=== PATIENT | male | born 1960 | race Caucasian/White ===

== ENCOUNTER 2020-04-01 06:57 | Outpatient (NON) | payer OTHER, SELFPAY ==
[2020-04-02 01:42] LABS: SARS-CoV-2 RNA PCR Negative
== END 2020-04-01 06:58 ==
PROVIDERS: PCP Family Medicine; Visit Provider Physician Assistant
DX: R05 Cough (principal); Z20.828 Contact with and (suspected) exposure to other viral communicable diseases
CPT/HCPCS: 87635; C9803; U0003

== ENCOUNTER → 2020-06-06 02:19 | Outpatient (CLI) | payer OTHER, SELFPAY ==
[2020-06-06 21:58] LABS: SARS-CoV-2 RNA PCR Negative
== END ==
PROVIDERS: PCP Family Medicine; Visit Provider Specialist
DX: Z01.812 Encounter for preprocedural laboratory examination (principal); Z20.822 Contact with and (suspected) exposure to COVID-19
CPT/HCPCS: C9803; U0003; U0005

== ENCOUNTER 2020-06-09 00:47 | Day surgery (SDC) | payer OTHER, SELFPAY ==
[2020-06-06 11:58] VITALS: BMI 29.6
[2020-06-09] VITALS (24 sets, daily range): BP systolic 128–175; BP diastolic 80–103; PULSE 45–55; RESP 11–23; TEMP 36.6; O2SAT 96–100; BMI 30.9
[2020-06-09 07:32] LABS: Basophils Percent Auto 0.6 % (0.2-1.2); Eosinophils Absolute Auto 0.1 K/mm3 (0-0.3); Eosinophils Percent Auto 2.7 % (0-4.4); Hemoglobin 15.1 g/dL (14.0-18.0); Immature Granulocyte Absolute 0.04 K/mm3 (0.00-0.031); Immature Granulocyte Percent A 0.8 % (0-0.5); Immature Platelet Fraction Pct 4.5 % (0.9-11.2); Lymphocytes Absolute Auto 1.16 K/mm3 (0.9-3.2); Lymphocytes Percent Auto 23.9 % (18.3-44.2); Mean Corpuscular HGB Conc 34.3 g/dl (32-36); Mean Corpuscular Hemoglobin 30.1 pg (26-34); Mean Corpuscular Volume 87.6 fl (80-100); Mean Platelet Volume 10.7 fl (7.4-10.4); Monocytes Absolute Auto 0.5 K/mm3 (0.1-0.6); Monocytes Percent Auto 9.5 % (2.6-8.5); Neutrophils Percent Auto 62.5 % (45.5-73.1); Platelet Count Result 130 k/mm3 (150-375); Red Blood Count 5.02 M/mm3 (4.6-6.20); Red Cell Distribution Width 12.5 % (11.5-14.5); White Blood Count 4.9 K/mm3 (4.5-10.0)
[2020-06-09 07:46] LABS: Anion Gap 2 mmol/L (8-16); Blood Urea Nitrogen 19 mg/dL (9-20); Calcium 8.7 mg/dL (8.4-10.2); Carbon Dioxide 30 mmol/L (22-30); Chloride 107 mmol/L (98-107); Estimated CRCL calculation 102 ml/min; Estimated Glomerular Filt Rate > 60; Glucose 116 mg/dL (75-110); Sodium 139 mmol/L (137-145)
--- NOTE | 2020-06-09 08:39 | WPDMODSED ---
Moderate Sedation Note-Pt Data Patient Data Diagnosis: Abnormal ECG /abnormal echo? Rule out CAD Present Complaint: no complaints Procedure to be performed/Plan: left heart catheterization Allergies Allergy/AdvReac Type Severity Reaction Status Date / Time No Known Allergies Allergy Verified 04/09/20 09:30 Home Medications Medication Instructions Recorded Confirmed Type nebivolol 10 mg tablet 10 mg PO DAILY #90 tablet 11/29/19 06/06/20 Rx aspirin 81 mg chewable tablet 81 mg PO DAILY #90 tablet 04/09/20 06/06/20 Rx omeprazole 40 mg capsule,delayed 40 mg PO DAILY #30 cap 04/09/20 06/06/20 Rx release Current Medications: Active Medications Sodium Chloride (Normal Saline Iv) 500 mls @ 100 mls/hr IV CONT .Q5H [facility] Sedation/Anesthesia: No previous sedation/anesthesia problems (including family history). [facility] Social History Social History Smoking status: Never smoker Alcohol intake: never Substance use: never Substance use type: does not use Living arrangements: with family Spiritual care concerns: No Mod Sed Physical Exam Physical Exam Pre Procedural Exam: Normal: Appearance, Neck, Throat, Airway, Lungs, Heart Size, Heart Rate, Heart Rhythm, Neuro Exam and Extremities Hours since solid foods: 12 Hours since liquid intake: 12 Internal Medicine - PN: Obj Da Vital Signs Vital Signs: Vital Signs - 24 hr 06/09/20 07:34 Temperature 36.6 C Pulse Rate 53 L Respiratory Rate 15 Blood Pressure 160/95 H Pulse Oximetry 98 Meds/Results Medications: Active Medications Generic Name Dose Route Start Last Admin Trade Name Freq PRN Reason Stop Dose Admin Sodium Chloride 500 mls @ 100 mls/hr 06/09/20 07:00 Normal Saline Iv IV CONT .Q5H [facility] Labs CBC & Chem 7: 06/09/20 07:20 06/09/20 07:20 Labs: Laboratory Results - last 24 hr 06/09/20 06/09/20 07:20 07:20 WBC 4.9 RBC 5.02 Hgb 15.1 Hct 44.0 MCV 87.6 MCH 30.1 MCHC 34.3 RDW 12.5 Plt Count 130 L MPV 10.7 H Immature Gran % (Auto) 0.8 H Neut % (Auto) 62.5 Lymph % (Auto) 23.9 [place] % (Auto) 9.5 H Eos % (Auto) 2.7 Baso % (Auto) 0.6 Lymph # (Auto) 1.16 [place] # (Auto) 0.5 Eos # (Auto) 0.1 Baso # (Auto) 0.0 Abs Immat Gran (auto) 0.04 H Absolute Neuts (auto) 3.0 Absolute Nucleated RBC 0.0 Nucleated RBC % 0.0 % Immature Plt Fraction 4.5 Sodium 139 Potassium 5.0 Chloride 107 Carbon Dioxide 30 Anion Gap 2 L BUN 19 Creatinine 0.90 Estim Creat Clear Calc 102 Estimated GFR > 60 Glucose 116 H Calcium 8.7 ASA Classification/Sedation ASA Classification/Sedation ASA Class: II Emergent: No Risks: Risks, benefits and alternatives explained and patient/family accepted plan for sedation. Patient re-evaluated immediately prior to sedation.
--- NOTE | 2020-06-09 09:32 | ECG_ITS ---
Measurements Intervals [place] Rate: 50 P: 51 IA: 169 QRS: -24 QRSD: 102 T: 23 QT: 407 QTc: 374 Interpretive Statements SINUS BRADYCARDIA DELAYED PRECORDIAL R/S TRANSITION BORDERLINE T WAVE ABNORMALITY- ANTERIOR LEADS BASELINE ARTIFACT- I, II BORDERLINE ECG Electronically Signed On 06-09-2020 10:25:35 LEATHER STRIPPING MACHINE OPERATOR by Dave Kim D.O.
--- NOTE | 2020-06-09 09:35 | WPDCARDPROC ---
Cardiac Cath Procedure Note Date of procedure:: 06/09/20 Performing physician:: Bo Patterson MD Indication:: abnormal stress test /echocardiogram Brief clinical history:: this is a 59-year-old man who had an episode of self-limited sharp atypical sounding chest pain recently as an outpatient. This triggered an evaluation including a stress test and an echocardiogram. The stress test showed some pseudonormalization of his inverted T-waves and his echocardiogram demonstrated wall motion abnormalities compatible with a previous anteroapical infarction. For this reason angiogram has been recommended. Procedure Procedure performed:: left ventriculogram coronary angiogram PCI (BEN) to the mid LAD Sedation/Medication given:: fentanyl 50 mg Versed 2 mg case start time 8:52 a.m. case end time 9:30 a.m. sedation provided by Katina Romero RN, trained observer Access site:: [facility] right femoral artery Estimated blood loss:: 20-30 cc Procedure note:: patient was brought to the cardiac catheterization lab in the postabsorptive state the right femoral triangle was prepared and draped in the usual fashion. Anesthesia was provided with 1% lidocaine infiltrated locally. Using the modified Seldinger technique a 5 [place] sheath was placed into the right femoral artery. After this left heart catheterization was carried out. A 5 [place] angled pigtail catheter was used to measure left-sided hemodynamics and inject the left ventriculogram in the SIN projection. After this standard 5 [place] FL4 and JR4 catheters were used to engage inject the left and right coronaries in multiple projections. Following this the cine angiograms were reviewed and PCI of the LAD was recommended and carried out as detailed below. Prior to PCI the 5 [place] sheath was changed over guidewire for 6 [place] and he was then systemically anticoagulated with bolus and infusion of Angiomax. He received aspirin and 180 mg of Brilinta prior to PCI. Following intervention the sheath was sutured into position the patient was taken to the holding area for recovery and sheath removal. He was in stable condition there was no evidence of any groin hematoma upon leaving the labor relations representative. Findings:: Hemodynamics: Central aortic pressure 140/76 left ventricle 140/6 end-diastolic pressure 14. There is no gradient across the aortic valve upon pullback. Left ventricle: The LV is normal in size the mid to apical anterior segment is hypodynamic the remainder of the LV contracts adequately the global ejection fraction is in the low-normal range of 45-50%. The left main coronary artery is nicely patent the left anterior descending is a [id number] caliber vessel proximally giving rise to a proximal diagonal and septal branch which are free of significant disease. Following this the LAD is 99% occluded with very slow flow distal to this down to the apex. Circumflex is a moderate caliber artery giving rise to the marginal branches. The largest marginal branch has a modest 30-40% stenosis proximally. Right coronary artery is large in caliber and dominant to the posterior circulation the right coronary artery is angiographically free of disease. There is no collateral filling from the right to the occluded LAD. Intervention: The left main coronary artery was engaged using a 6 [place] CLS 3 5 guiding catheter. A 0.014 BMW wire was used to probe the occluded segment of the LAD was successfully advanced into the distal LAD. The lead area of occlusion was then pre-dilated using a 2.0 x 20 mm emerge PTCA balloon. There was 80% stenosis in the LAD about 20-25 cm distal to the initial occlusion. 200 mcg of intracoronary nitroglycerin was given without any angiographic change in this appearance. This area was then pre-dilated with the same 2 mm balloon as detailed above. Following this I used a 3 x 35 mm Bookya drug-eluting stent deployed immediately at the origin of the septal branch
[2020-06-09] MEDS: SODIUM CHLORIDE 0.9% IV 1,000 ML 125 ML IV CONT (10:48)
--- NOTE | 2020-06-09 14:00 | ADMGEN ---
This patient, Lawrence King, was admitted to [facility]. Patient/family oriented to hospital policies and general routines including ID bracelet, bed and alarms, visiting hours, pain management, procedures, bathroom and other care routines, personal items, smoking policy, room service/diet, and visiting hours. Information on how to activate the Rapid Response Team has been discussed. Patient/Family are encouraged to report perceived risks to care and to ask questions if they do not understand what they are told or what they should do.
[2020-06-09] MEDS: TICAGRELOR 90 MG TABLET PO (20:03)
[2020-06-10] VITALS: BP 136/90; PULSE 49; PULSE 54; PULSE 56; RESP 18; TEMP 36.6; O2SAT 97
[2020-06-10 02:00] VITALS: PULSE 49
[2020-06-10 04:00] VITALS: BP 139/91; PULSE 54; PULSE 61; PULSE 63; RESP 13; TEMP 36.5; O2SAT 99
--- NOTE | 2020-06-10 05:11 | ECG_ITS ---
Measurements Intervals [place] Rate: 56 P: 35 MA: 151 QRS: -34 QRSD: 101 T: 19 QT: 399 QTc: 386 Interpretive Statements SINUS BRADYCARDIA LEFT AXIS DEVIATION VOLTAGE CRITERIA FOR LVH POOR R WAVE PROGRESSION, CONSIDER ANTEROLATERAL INFARCT T WAVE ABNORMALITY IN ANTEROLATERAL LEADS- CONSIDER ISCHEMIA BASELINE ARTIFACT- I, II, AVR ABNORMAL ECG Electronically Signed On 06-10-2020 10:17:32 GUIDE CRUISE by Dave Kim D.O.
[2020-06-10 06:00] VITALS: PULSE 57
[2020-06-10 08:00] VITALS: BP 142/94; PULSE 58; PULSE 60; RESP 16; TEMP 36.6; O2SAT 98
[2020-06-10] MEDS: ROSUVASTATIN 10 MG TABLET PO (08:36)
[2020-06-10] MEDS: TICAGRELOR 90 MG TABLET PO (08:36)
[2020-06-10] MEDS: ASPIRIN 81 MG CHEWABLE TABLET PO (08:36)
[2020-06-10 10:00] VITALS: PULSE 68
--- NOTE | 2020-06-10 10:15 | PC.NURSE ---
DR. URIARTE HERE TO SEE PT.
--- NOTE | 2020-06-10 10:19 | PM.PNCARD ---
Progress Note: A&P Assessment and Plan (1) CAD (coronary artery disease): Code(s): I25.10 - Atherosclerotic heart disease of [place] coronary artery without angina pectoris Status: Acute Assessment and Plan: 99% stenosis LAD with slow flow to the apex status post 3.0 x 35 mm Orsiro drug-eluting stent at marginal septal branch; 30-40% stenosis of OM branch of circumflex Continue dual antiplatelet therapy aspirin and Brilinta without interruption. Counseled extensively. All questions answered. Continue rosuvastatin 10 mg at bedtime. Patient stable for discharge home to follow up with Dr. Patterson. He will have 10 days off of work then to return but will communicate with Dr. Patterson. Counseled on side effects, risks and benefits with Brilinta and went to contact our office in this regard. He is not to miss a single dose at risk for stent thrombosis and or myocardial infarction. Monitor for bleeding counseling performed. (2) Cardiomyopathy: Code(s): I42.9 - Cardiomyopathy, unspecified Status: Acute Assessment and Plan: Mild LV dysfunction EF 45-50% with mid to apical anterior hypokinesis. Compensated. (3) S/P coronary artery stent placement: Code(s): Z95.5 - Presence of coronary angioplasty implant and graft Status: Acute Assessment and Plan: 3.0 x 35 mm drug-eluting stent to LAD Subjective Date/time seen: Date of service: 06/10/20 10:19 Follow-up post PCI to LAD Feels well. Denies new issues overnight. Some mild tightening left chest at a 45 degree angle resolve sitting up no issue walking or standing. No shortness of breath. No dizziness. No complaints of leg pain, no fevers or chills. Review of Systems Review of Systems: All systems reviewed & are unremarkable except as noted in HPI and below Constitutional: Constitutional: Reports as per HPI and Reports no additional constitutional complaints Eyes: Eyes: Reports as per HPI and Reports no additional eye complaints ENT: Reports system reviewed and no additional complaints, except as documented and Reports as per HPI Cardiovascular: Cardiovascular: Reports as per HPI and Reports no additional cardiovascular complaints Respiratory: Respiratory: Reports as per HPI and Reports no additional respiratory complaints Gastrointestinal: Gastrointestinal: Reports as per HPI and Reports no additional gastrointestinal complaints Genitourinary: Genitourinary: Reports no additional male genitourinary complaints and Reports as per HPI Musculoskeletal: Musculoskeletal: Reports no additional musculoskeletal complaints and Reports as per HPI Integumentary/Breasts: Skin/Breast: Reports system reviewed and no additional complaints, except as docu and Reports as per HPI Neurologic: Reports system reviewed and no additional complaints, except as documented and Reports as per HPI Psychiatric: Psychiatric: Reports no additional psychiatric complaints and Reports as per HPI Endocrine: Endocrine: Reports no additional endocrine complaints and Reports as per HPI Hematologic/Lymphatic: Hematologic/Lymphatic: Reports no additional hematologic/lymphatic complaints and Reports as per HPI Allergic/Immunologic: Allergic/Immunologic: Reports no additional allergic/immunologic complaints and Reports as per HPI Exam Narrative: Exam Narrative: General: Well developed, alert and oriented x3. No apparent distress, comfortable, pleasant, and cooperative. Head: atraumatic, normocephalic Eyes: EOM intact, sclerae anicteric, conjunctivae unremarkable Ears/Nose: external inspection of ears and nose were grossly normal Mouth/Throat: oral mucosa pink and moist Neck: supple, normal range of motion, no jugular venous distention or carotid bruits, thyroid nonpalpable, trachea midline. Cardiac: Regular rate and rhythm, normal S1-S2, no murmurs, clicks, gallops, or rubs. Lungs: Clear to auscultation bilaterally, no rales, wheezes, or
--- NOTE | 2020-06-10 10:29 | PM.DS ---
DS: Admitting Diagnosis Admitting Diagnosis Admitting Diagnosis: Abnormal stress test, CAD DS: Discharge Diagnosis Discharge Diagnosis (1) CAD (coronary artery disease): Code(s): I25.10 - Atherosclerotic heart disease of [place] coronary artery without angina pectoris Status: Acute (2) S/P coronary artery stent placement: Code(s): Z95.5 - Presence of coronary angioplasty implant and graft Status: Acute (3) Cardiomyopathy: Code(s): I42.9 - Cardiomyopathy, unspecified Status: Acute DS: Summary Hospital Course Reason for hospitalization: Abnormal stress test, chest pain outpatient Cardiac catheterization Hospital Course: Patient is a pleasant 59-year-old male who presented with Dr. Patterson as an outpatient for diagnostic cardiac catheterization after having abnormal stress test for complaints of atypical sharp chest pain. He was found have a 99% stenosis in the LAD for which a 3.0 x 35 mm drug-eluting stent was placed without complication an excellent result. He was noted to have mild LV dysfunction EF 45-50% with anterior hypokinesis. He was admitted overnight for observation without complication. Access site was soft without bruit, hematoma or bleeding and he was otherwise asymptomatic. Patient discharged home in stable and improved condition follow-up with Dr. Patterson as scheduled as an outpatient. He was counseled on the importance of compliance with medications, follow-up in communication. Status at Discharge Cognitive/behavioral status at discharge: Competent Functional status at discharge: independent ambulation Time Spent with Patient Time attestation: Total time spent providing and/or coordinating discharge services: 39 minutes Time spent: Greater than 30 minutes Exam Narrative: Exam Narrative: General: Well developed, alert and oriented x3. No apparent distress, comfortable, pleasant, and cooperative. Head: atraumatic, normocephalic Eyes: EOM intact, sclerae anicteric, conjunctivae unremarkable Ears/Nose: external inspection of ears and nose were grossly normal Mouth/Throat: oral mucosa pink and moist Neck: supple, normal range of motion, no jugular venous distention or carotid bruits, thyroid nonpalpable, trachea midline. Cardiac: Regular rate and rhythm, normal S1-S2, no murmurs, clicks, gallops, or rubs. Lungs: Clear to auscultation bilaterally, no rales, wheezes, or rhonchi. Abdomen: Soft, nontender, nondistended, positive bowel sounds throughout. No appreciable hepatosplenomegaly, no rebound guarding or rigidity noted. Abdominal aorta nonpalpable, no appreciable bruits. Extremities: No edema, clubbing, and or cyanosis. Extremities warm and well perfused. Skin: Warm and dry without ecchymoses, rashes, and/or petechiae. Musculoskeletal: Muscle strength and tone intact throughout without obvious deformities. Vascular: Carotid upstrokes 2+ bilaterally, radial pulses 2+ bilaterally, dorsalis pedis pulses 2+ bilaterally, right groin access site soft, no hematoma, bruising, bruit or bleeding. Neurologic: Cranial nerves 2-12 grossly intact, examination grossly nonfocal Pscyhiatric: Mood calm and appropriate. Discharge Plan Discharge Patient Disposition: Home, Self-Care Discharge Instructions: No driving for 24 hours. No lifting, pushing, or pulling more than 10 lb for 1 week. No strenuous exercise or activity (including sex) for 1 week May shower but no tub baths or swimming pool for 1 week Avoid pressure hot tub Stay hydrated Stay out of the heat of the day Monitor and report excessive bleeding, hematoma, drainage, severe pain, fevers/chills, discoloration, coolness of the leg, severe chest pain, or shortness of breath. Follow-up with the [facility] [place] office [address] appointment date and time, provided Please arrive 20 minutes prior to your appointment. Bring photo ID, insurance cards, and current m
--- NOTE | 2020-06-10 12:15 | PC.NURSE ---
DISCHARGE INSTRUCTIONS GIVEN AND REVIEWED W/ PT AND . QUESTIONS ANSWERED. VOICED UNDERSTANDING OF ALL. DISCHARGED HOME, OUT VIA WC TO 'S WAITING CAR W/ ALL PERSONAL BELONGINGS AND DISCHARGE PACKET. VOICES NO C/O. NO DISTRESS NOTED.
== END 2020-06-10 12:15 | disposition home or self-care (01) ==
LOC: ANHCATHLAB 07:05 → ANHCPC 14:37
PROVIDERS: PCP Family Medicine; Visit Provider Specialist
PROC: 4A023N7 Measurement of Cardiac Sampling and Pressure, Left Heart, Percutaneous Approach (ICD-10-PCS; CPT 93452; principal; 2020-06-09 08:30)
DX: R94.39 Abnormal result of other cardiovascular function study (principal); R07.89 Other chest pain; I25.10 Atherosclerotic heart disease of native coronary artery without angina pectoris; I51.9 Heart disease, unspecified; I42.9 Cardiomyopathy, unspecified; Z79.82 Long term (current) use of aspirin
CPT/HCPCS: 36415; 80048; 85025; 85055; 93005; 93458; A9270; C1725; C1769; C1874; C1887; C1894; C9600; C9803; J0583; J1644; J2250; J3010; J7030; J7040; U0003; U0005

== ENCOUNTER 2022-11-01 01:37 | Day surgery (SDC) | payer OTHER, SELFPAY ==
[2022-10-21 12:52] VITALS: BMI 32.3
[2022-11-01 06:39] VITALS: BP 141/90; PULSE 105; RESP 18; TEMP 36.1; O2SAT 99; BMI 30.4
[2022-11-01] MEDS: LACTATED RINGERS 1,000 ML 150 ML IV CONT (06:48)
--- NOTE | 2022-11-01 07:48 | WPDANESEPPF ---
Anes - Initial Pre Proc Eval Procedure: Operation Date: 11/01/22 08:00 Proposed Procedures p Screening Colonoscopy - Mariano Larsen MD Date/Time: 11/01/22 07:48 Surgeon: Mariano Larsen MD Pre Op Diagnosis: neoplasm screening Patient Data Age: 62 Gender: M Height: 1.85 m Weight: 104.6 kg Last Vital Signs Temp 97 F L 11/01/22 06:39 Pulse 105 H 11/01/22 06:39 Resp 18 11/01/22 06:39 BP 141/90 H 11/01/22 06:39 Pulse Ox 99 11/01/22 06:39 O2 Del Method Room Air 11/01/22 06:39 Allergies Allergy/AdvReac Type Severity Reaction Status Date / Time No Known Allergies Allergy Verified 08/09/22 14:59 Home Medications Medication Instructions Recorded Confirmed Type aspirin 81 mg chewable tablet 81 mg PO DAILY #90 tabs 04/09/20 10/21/22 Rx (Nabila Chewable Low Dose Aspirin) rosuvastatin 10 mg tablet (Crestor) 10 mg PO DAILY #30 tabs 06/10/20 10/21/22 Rx Patient hx anesthesia problems: none Family hx anesthesia problems: none Results Review: All pre-operative results and documents have been reviewed as part of the pre-operative evaluation. [facility] Past Medical History Medical History CAD (coronary artery disease) Surgical History Surgical History History of PTCA Family History Family History Sibling Malignant neoplasm of prostate Social History Social History (Updated 08/09/22 @ 15:00 by Sabrina Weathers MA) Social History: Caffeine-seldom Smoking status: Never smoker Alcohol intake: current Alcohol use details: 3 per month Substance use: never Substance use type: does not use Lack of Transportation: No Lack of Food: Never True Current Housing: I Have Housing Concerned About Future Housing: No Difficulty Paying Gas/Electric Bills: No Difficulty Paying for Meds: No Currently Unemployed: No Education: High School Diploma/GED Difficulty w/ Childcare or Family Care: No Living arrangements: with family Spiritual care concerns: No Anes - Eval Final PreProcedure Day of Procedure 11/01/22 07:48 Patient weight: normal Heart: regular rate and rhythm Lungs: clear to auscultation Airway: Mallampati scale class II Neurological: alert and oriented Last oral intake: >/= 8 hours ASA classification: III Emergent: no Anesthetic plan: proceed Anesthesia type and monitoring: general GIVS and standard monitoring Results Review: All pre-operative results and documents have been reviewed as part of the pre-operative evaluation. Informed Consent: The patient's anesthetic plan and its attendant risks and benefits were discussed with the patient/family/POA. Questions were solicited and answers provided to the satisfaction of the patient/family/POA.
--- NOTE | 2022-11-01 07:50 | PM.HPGS ---
History of Present Illness History of Present Illness Consent: Risks, benefits, and alternatives have been discussed and questions answered. Patient agrees to proceed with procedure. Chief complaint: neoplasm screening Narrative: Lawrence King is a 62 year old male here for first screening colonoscopy Review of Systems Constitutional: Constitutional: Denies headache(s) and Denies weakness Eyes: Eyes: Denies blurry vision ENT: Reports Normal hearing present, Denies headache(s) and Denies neck pain Cardiovascular: Cardiovascular: Denies chest pain and Denies dyspnea Respiratory: Respiratory: Denies dyspnea Gastrointestinal: Gastrointestinal: Reports no additional gastrointestinal complaints Genitourinary: Genitourinary: Denies dysuria Musculoskeletal: Musculoskeletal: Denies neck pain Integumentary/Breasts: Skin/Breast: Denies dry skin Neurologic: Reports Normal hearing present, Denies headache(s) and Denies weakness Psychiatric: Psychiatric: Denies anxiety Endocrine: Endocrine: Denies change in body appearance Hematologic/Lymphatic: Hematologic/Lymphatic: Denies easy bleeding Allergic/Immunologic: Allergic/Immunologic: Denies urticaria PMFSH Past Medical History Medical History CAD (coronary artery disease) Surgical History Surgical History History of PTCA Family History Family History Sibling Malignant neoplasm of prostate Social History Social History (Updated 08/09/22 @ 15:00 by Sabrina Weathers MA) Social History: Caffeine-seldom Smoking status: Never smoker Alcohol intake: current Alcohol use details: 3 per month Substance use: never Substance use type: does not use Lack of Transportation: No Lack of Food: Never True Current Housing: I Have Housing Concerned About Future Housing: No Difficulty Paying Gas/Electric Bills: No Difficulty Paying for Meds: No Currently Unemployed: No Education: High School Diploma/GED Difficulty w/ Childcare or Family Care: No Living arrangements: with family Spiritual care concerns: No Meds Home Medications and Allergies Home Medications Medication Instructions Recorded Confirmed Type aspirin 81 mg chewable tablet 81 mg PO DAILY #90 tabs 04/09/20 10/21/22 Rx (Nabila Chewable Low Dose Aspirin) rosuvastatin 10 mg tablet (Crestor) 10 mg PO DAILY #30 tabs 06/10/20 10/21/22 Rx Allergies Allergy/AdvReac Type Severity Reaction Status Date / Time No Known Allergies Allergy Verified 08/09/22 14:59 Vital Signs Vital Signs - 24 hr 11/01/22 06:39 Temperature 97 F L Pulse Rate 105 H Respiratory Rate 18 Blood Pressure 141/90 H Pulse Oximetry 99 Oxygen Delivery Room Air Exam Const: General: comfortable and no acute distress HENMT: Face/Nose/Sinus: Normal nares present Eyes: General: appearance normal, both eyes and all related structures Neck: Neck: no JVD Resp: Auscultation: clear to auscultation bilaterally Cardio: Rate: regular rate Rhythm: regular rhythm GI: Inspection: non-distended GI Palp: Yes Soft to palpation Skin: General skin exam: normal color Neuro: General: gait normal Speech: normal speech Extrem: General: normal to inspection Psych: Mental Status: mental status grossly normal Assessment and Plan Assessment and plan (1) Colon cancer screening: Code(s): Z12.11 - Encounter for screening for malignant neoplasm of colon Status: Acute Assessment and Plan: colonoscopy
[2022-11-01 08:12] VITALS: BP 103/73; PULSE 65; RESP 17; O2SAT 95
[2022-11-01 08:22] VITALS: BP 104/76; PULSE 64; RESP 17; O2SAT 95
[2022-11-01 08:32] VITALS: BP 121/89; PULSE 65; RESP 17; O2SAT 95
== END 2022-11-01 08:40 | disposition home or self-care (01) ==
PROVIDERS: PCP Family Medicine; Visit Provider Internal Medicine Gastroenterology
PROC: 0DJD8ZZ Inspection of Lower Intestinal Tract, Via Natural or Artificial Opening Endoscopic (ICD-10-PCS; CPT 45378; principal; 2022-11-01 08:00)
DX: Z12.11 Encounter for screening for malignant neoplasm of colon (principal); K64.8 Other hemorrhoids; Z79.82 Long term (current) use of aspirin; I25.10 Atherosclerotic heart disease of native coronary artery without angina pectoris
CPT/HCPCS: 45378; J2704; J7120